=== PATIENT | female | born 1985 | race Caucasian/White ===

== ENCOUNTER 2023-06-25 17:58 | Emergency (ER) | payer MEDICAID ==
[~2023-06-25] VITALS: Ht 170.2 cm; Wt 98.0 kg
[2023-06-25 18:16] VITALS: BP_SYST 163; PULSE 125; RESP 18; TEMP 98.3; O2SAT 99
[2023-06-25] MEDS ORDERED: LABETALOL HCL 20 MG/4 ML CARTRIDGE IVP ONE (18:18)
[2023-06-25] MEDS ORDERED: niCARdipine 2.5 MG/ML, 10 ML VIAL (CARDENE) IV ONE (18:19)
--- NOTE | 2023-06-25 18:22 | NUR ---
Placed in room 06 . Placed on monitoring and evaluation advisor, blood pressure machine and pulse oximeter. To gown for exam. Side rails up. Report given to SHIREEN CLAY
[2023-06-25] MEDS: LABETALOL HCL 20 MG/4 ML CARTRIDGE IVP ONE ×2 (18:33→19:42)
[2023-06-25 18:59] LABS: BASOPHILS % (AUTO) 0.1 % (0.0-2.0); EOSINOPHILS # (AUTO) 0.1 K/uL (0.0-0.4); EOSINOPHILS % (AUTO) 0.6 % (0.0-4.0); HEMATOCRIT 34.8 % (36-48); LYMPHOCYTES % (AUTO) 22.4 % (20.5-51.5); MEAN CORPUSCULAR HEMOGLOBIN 32 pg (27-31); MEAN CORPUSCULAR HGB CONC 34 % (32-36); MEAN CORPUSCULAR VOLUME 93 fL (79.0-98.0); MONOCYTES # (AUTO) 0.4 K/uL (0.0-1.0); MONOCYTES % (AUTO) 4.6 % (1.7-9.3); NEUTROPHILS # (AUTO) 6.6 K/uL (1.8-7.7); NEUTROPHILS % (AUTO) 72.3 % (40.0-70.0); PLATELET COUNT (AUTO) 186 K/uL (130-430); RED BLOOD CELL COUNT(AUTO) 3.73 MIL/uL (4.2-6.2); RED CELL DISTRIBUTION WIDTH 13.4 % (9.0-15.0); WHITE BLOOD COUNT (AUTO) 9.1 K/uL (4.8-10.8)
[2023-06-25 19:12] LABS: ALBUMIN 3.3 g/dL (3.4-4.8); CALCIUM 9.6 mg/dL (8.4-11.0); CREATININE 0.76 mg/dL (0.55-1.30); TOTAL BILIRUBIN 0.5 mg/dL (0.0-1.0)
--- NOTE | 2023-06-25 19:45 | NUR ---
38F BIB FROM HOME C/O VAGINAL BLEEDING WITH RED DISCHARGE CLAIMS "SMALL AMOUNT". PT STATES 2 MONTHS . PT IS AA0 X4 RESTING COMFORTABLY IN BED WITH BEDSIDE.
--- NOTE | 2023-06-25 19:54 | NUR ---
ER at bedside examining patient.
[2023-06-25 20:40] LABS: BILIRUBIN,URINE NEGATIVE (NEGATIVE); BLOOD, URINE NEGATIVE (NEGATIVE); CLARITY/URINE CLOUDY (CLEAR); COLOR,URINE YELLOW (YELLOW); GLUCOSE,URINE NEGATIVE (NEGATIVE); KETONES,URINE TRACE (NEGATIVE); NITRITE, URINE NEGATIVE (NEGATIVE); PH,URINE 7.5 (5.0-8.0); PROTEIN URINE NEGATIVE (NEGATIVE); UROBILINOGEN,URINE 0.2 (0.2-1.0)
[2023-06-25 20:44] LABS: LEUKOCYTE ESTERASE ,URINE TRACE (NEGATIVE)
[2023-06-25 20:45] LABS: BACTERIA,URINE FEW /HPF (None Seen); MUCUS,URINE None Seen /LPF (None Seen); RBC,URINE NONE SEEN /HPF (0-3); TRIPLE PHOSPHATE CRYSTAL,UR 0-10 /HPF (None Seen); URINE AMORPHOUS PHOSPHATES 3+ /HPF (None Seen)
[2023-06-25] MEDS ORDERED: LABE200T9 PO (20:52)
[2023-06-25 21:18] VITALS: BP_SYST 124; PULSE 100; RESP 16; TEMP 98.3; O2SAT 98
--- NOTE | 2023-06-25 21:19 | NUR ---
Patient given written and verbal discharge instructions and verbalizes understanding. ER MD discussed with patient the results and treatment provided. Patient in stable condition. ID arm band removed. IV catheter removed intact and dressing applied, no active bleeding. Rx of LEBETALOL given. Patient educated on HPERTENSION DURING and to follow up with PMD. Pain Scale . Opportunity for questions provided and answered. Medication side effect fact sheet provided.
== END 2023-06-25 21:19 | disposition home or self-care (01) ==
LOC: SED 17:58
DX: O16.2 Unspecified maternal hypertension, second trimester (principal); Z3A.17 17 weeks gestation of pregnancy; Z79.899 Other long term (current) drug therapy
CPT/HCPCS: 36415; 76805-TC; 80053; 81000; 84702; 85025; 86900; 86901; 99284